=== PATIENT | female | born 1995 | race Two or more races ===

== ENCOUNTER 2020-11-16 19:05 | Emergency (ER) | payer OTHER ==
[~2020-11-16] VITALS: Ht 165.1 cm; Wt 54.4 kg
[2020-11-17] MEDS ORDERED: KETO10TA2 PO (01:48)
== END 2020-11-17 01:54 ==
LOC: ER 19:05
DX: N93.8 Other specified abnormal uterine and vaginal bleeding (principal)